=== PATIENT | male | born 1960 | race Caucasian/White ===

== ENCOUNTER 2018-01-19 07:38 | Day surgery (SDC) | payer BC ==
[2018-01-18 10:30] VITALS: BMI 27.1
[2018-01-19] MEDS ORDERED: Oxymetazoline HCl 0.05% ( 15 ML ) ONE ×2 (09:01→09:31)
[2018-01-19] MEDS ORDERED: Lidocaine 1% w/Epinephrine 1:100K 30 ML VIAL ONE (09:30)
[2018-01-19] MEDS ORDERED: Bacitracin Zinc Ointment 30 gm TUBE ONE (09:31)
[2018-01-19] MEDS ORDERED: Fentanyl 250 MCG/5 ML VIAL ONE (09:32)
[2018-01-19] MEDS ORDERED: Fentanyl 100 MCG/2 ML VIAL ONE ×2 (10:47→11:14)
[2018-01-19] MEDS ORDERED: HYDROcodone/Acetaminophen 5/325 mg Tablet ONE (12:05)
[2018-01-19] MEDS ORDERED: Morphine 4 MG/ML VIAL ONE (12:05)
--- NOTE | 2018-01-19 12:36 | OP ---
DATE OF PROCEDURE: 01/19/2018 PREOPERATIVE DIAGNOSES: 1. Chronic rhinosinusitis. 2. Nasal septal deviation. 3. Bilateral inferior turbinate hypertrophy. POSTOPERATIVE DIAGNOSES: 1. Chronic rhinosinusitis. 2. Nasal septal deviation. 3. Bilateral inferior turbinate hypertrophy. PROCEDURES: 1. Bilateral endoscopic sinus surgery, total ethmoidectomies. 2. Bilateral endoscopic sinus surgery, maxillary antrostomies. 3. Bilateral endoscopic sinus surgery, frontal sinusotomies. 4. Nasal septoplasty. 5. Bilateral inferior turbinate submucous resection. SURGEON: Odell Short M.D. ESTIMATED BLOOD LOSS: 50 mL. COMPLICATIONS: None. ANESTHESIA: GETA. PROCEDURE IN DETAIL: Patient was taken to the operating room and placed supine on the table. General endotracheal anesthesia was obtained by the Anesthesia staff. Tube was secured in the left lower lip. Patient was then placed in the beach chair position, and Afrin pledgets were placed in the nasal cavity. Injections of 1% lidocaine with 1:100,000 epinephrine were made into the nasal septum as well as the inferior turbinates. Mack ceballos was then prepped and draped in standard surgical fashion for nasal surgery. Following this, the Afrin pledgets were removed. A Ki llian incision was made on the left nasal septum. Submucoperichondrial dissection was performed. The deviated portions of the septum included portions of the cartilage and the bony septum. These isolate d areas were removed using three cutting rongeurs. There was noted to be a large dorsal and caudal stru t, left intact for support of the nose. The mucoperichondrial flaps were then reapproximated using a 4-0 gut stitch. Any straight pieces of cartilage were crushed prior to this and placed between the mucoperichondrial flaps. Following this, the inferior turbinates were then punctured with a submucosa l coblation wand, and submucosal coblations were performed of multiple areas of the inferior portion of the anterior inferior turbinate. Please note that the submucosal microdebrider was used to submucosally resect the anterior and inferi or portions of the inferior turbinates bilaterally. The left septal spur was actually penetrating in to the maxillary sinus wall causing a large accessory ostia, which was adjacent to the natural maxill delgado sinus ostia. Following this, the uncinate process was anteriorly fractured using the ball-ended probe, following t his a straight microdebrider was used to resect the uncinate process bilaterally as well as identify and widen the natural maxillary sinus ostia. On the left side, the maxillary sinus ostia was connect ed to the large accessory ostia adjacent to it. There was thick crusting in this area. Following th is, the ethmoidal bulla was identified and was punctured on its medial and inferior aspect and was re moved. Following this, the grand lamella was identified and was punctured into the posterior ethmoid al cells. Working from posterior to anterior, the ethmoidal cells were opened in a mucosal-sparing t echnique. Following this, a 45-degree scope and the 40-degree curved microdebrider blade were used t o further resect the frontal recess cells exposing the frontal sinus ostia, opening the frontal sinus ostia by removing extra frontal cells. Following this, the nasal cavity was irrigated. MeroPacks w ere placed within the middle meatus. Najera splints were placed and secured. The patient tolerated t he procedure well.
[2018-01-19] MEDS ORDERED: Ondansetron HCl/PF 4 MG/2 ML Vial ONE (13:51)
[2018-01-19] MEDS ORDERED: Dexamethasone 20 MG/5 ML VIAL ONE (13:51)
[2018-01-19] MEDS ORDERED: PROPOFOL 200 MG/20 ML VIAL ONE (13:51)
[2018-01-19] MEDS ORDERED: Lidocaine 1% PF 5 ML VIAL ONE (13:51)
== END 2018-01-19 12:26 | disposition home or self-care (01) ==
LOC: SDC 07:38
PROVIDERS: ATTEND Otolaryngology Plastic Surgery within the Head & Neck
PROC: 09SM0ZZ Reposition Nasal Septum, Open Approach (ICD-10-PCS; principal; 2018-01-19)
PROC: 09BS8ZZ Excision of Right Frontal Sinus, Via Natural or Artificial Opening Endoscopic (ICD-10-PCS; principal; 2018-01-19)
PROC: 099Q8ZZ Drainage of Right Maxillary Sinus, Via Natural or Artificial Opening Endoscopic (ICD-10-PCS; principal; 2018-01-19)
PROC: 099R8ZZ Drainage of Left Maxillary Sinus, Via Natural or Artificial Opening Endoscopic (ICD-10-PCS; principal; 2018-01-19)
PROC: 09BT8ZZ Excision of Left Frontal Sinus, Via Natural or Artificial Opening Endoscopic (ICD-10-PCS; principal; 2018-01-19)
PROC: 09TU8ZZ Resection of Right Ethmoid Sinus, Via Natural or Artificial Opening Endoscopic (ICD-10-PCS; principal; 2018-01-19)
PROC: 09TL0ZZ Resection of Nasal Turbinate, Open Approach (ICD-10-PCS; principal; 2018-01-19)
PROC: 09TV8ZZ Resection of Left Ethmoid Sinus, Via Natural or Artificial Opening Endoscopic (ICD-10-PCS; principal; 2018-01-19)
DX: J32.0 Chronic maxillary sinusitis (principal); J34.2 Deviated nasal septum; J34.3 Hypertrophy of nasal turbinates; J34.89 Other specified disorders of nose and nasal sinuses; J30.1 Allergic rhinitis due to pollen; J30.89 Other allergic rhinitis; J30.81 Allergic rhinitis due to animal (cat) (dog) hair and dander; Z79.899 Other long term (current) drug therapy; Z87.891 Personal history of nicotine dependence; Z79.82 Long term (current) use of aspirin
CPT/HCPCS: 93005; 93010; 96374; 96375; 96376; J1100; J2001; J2270; J2405; J2704; J3010